=== PATIENT | female | born 1945 | race Caucasian/White ===

== ENCOUNTER 2025-09-19 13:00 | Inpatient (IN) | payer MEDICARE, SELFPAY ==
[2025-09-19 14:00] VITALS: BP 140/71; PULSE 71; RESP 16; TEMP 36.2; O2SAT 94
--- NOTE | 2025-09-19 14:01 | HP.PCM_ITS ---
HPI - General General Date of Admission: 09/19/25 Date of Service: 09/19/25 Chief Complaint: Here for rehabilitation. HPI Narrative KWAME MICHAEL, is a 80 Female who presents with followin09/12/2025 Admit [facility] for stroke alert. Left sided weakness, falls, rule out stroke. Worsening left sided weakness, fall, weakness left upper extremity. Mild right facial droop, no head trauma, no syncope. NIHSS 6. CT head okay, CTA head/neck no LVO. NIHSS, MRI brain, Echo, PT/OT/TUNA PURSE SEINER, Neurology, aspirin, statin for rule out stroke. 09/12/2025 Aspirin 81mg daily, Rosuvastatin 20mg for stroke with left hemiparesis. History of vascular dementia, sees Dr. Rehana Huang. Ceftriaxone IV UTI, urine culture pending. 09/13/2025 Confused. PT/OT/CM/SW right MCA stroke. 09/14/2025 PT/OT/CM/SW for discharge planning. 09/15/2025 Doing well, left side weaker than usual. 09/16/2025 Pre-CERT for SNF. 09/17/2025 MRI brain right sided stroke. PT/OT recommended IPR. E. Coli UTI treated with antibiotics. 09/18/2025 Aspirin 81mg daily, Rosuvastatin 20mg for stroke. PT/OT SNF. 09/19/2025 Admit to TCU with debility, here for rehabilitation, strengthening, prior to discharge home with . [facility] Medical History (Updated 09/19/25 @ 14:[address] Kevyn Price MD) Hypothyroidism Hyperlipidemia Vascular dementia Urinary tract infection Left hemiparesis Acute right MCA stroke Debility Home Medications ?Medication ?Instructions ?Recorded ?Last Taken ?Type acetaminophen 325 mg capsule 650 mg PO Q6H PRN pain (1 -10) 09/19/25 Unknown History aspirin 81 mg capsule 81 mg PO DAILY blood thinner 09/19/25 Unknown History bisacodyl 10 mg rectal suppository 10 mg AL DAILY PRN constipation 09/19/25 Unknown History dorzolamide 22.3 mg-timolol 6.8 1 drp ophthalmic (eye) BID eye 09/19/25 Unknown History mg/mL eye drops pressure enoxaparin 40 mg/0.4 mL 40 mg subcut DAILY blood thi nner 09/19/25 Unknown History subcutaneous syringe latanoprost 0.005 % eye drops 1 drp ophthalmic (eye) Q HS eye 09/19/25 Unknown History pressure levothyroxine 75 mcg tablet 75 mcg PO DAILY thyroid Unknown History rosuvastatin 10 mg tablet 20 mg PO DAILY cholesterol 1 Unknown History Family History (Updated 09/19/25 @ 14:[address] Kevyn Price MD) Brother Diabetes Sister Hypertension Sister Ovarian cancer Brother Hypertension Brother Colon cancer Sister Breast cancer Brother Glaucoma Surgical History (Updated 09/19/25 @ 14:[address] Kevyn Price MD) History of tonsillectomy History of vaginal hysterectomy History of total thyroidectomy History of surgical procedure on eye proper using laser History of lumpectomy of left breast History of right knee surgery History of eye surgery Social History (Updated 09/19/25 @ 14:[address] Kevyn Price MD) household members: spouse Smoking Status: Never smoker alcohol intake: never substance use type: does not use ROS Constitutional Constitutional: Reports weakness; Denies chills, fever(s) or weight gain ENT HEENT: Denies headache(s), nasal congestion or nasal discharge Cardiovascular Cardiovascular: Denies chest pain or palpitations Respiratory/Chest Respiratory/Chest: Denies cough, excessive phlegm production or shortness of breath with exertion Gastrointestinal Gastrointestinal: Denies abdominal pain, nausea or vomiting Genitourinary Genitourinary: Denies dysuria Musculoskeletal Musculoskeletal: Denies joint pain or joint swelling Integumentary Integumentary: Denies rash or wounds Neurologic Neurologic: Denies focal weakness, numbness or tingling Psychiatric Psychiatric: Denies anxiety, auditory hallucinations, depression, homicidal ideation or suicidal ideation Physical Exam Const alert General Appearance: cooperative HEENT normocephalic Eyes PERRL and EOMs intact bilaterally Neck supple, no JVD and no carotid bruits Resp normal respiratory effort, normal air movement and clear to auscultation bilaterally Cardio regular rate and regular rhythm GI normal to inspection, nondistended, normoactive bowel sounds, non-tender and non-distended Extremity normal capillary refill General Extremity: Negative for edema Skin no rashes or lesions noted General Skin Exam: no breakdown Neuro moves all extremities Neuro Narrative: Left hemiparesis. Psych affect normal Appearance: appropriate Assessment & Plan Assessment/Plan (1) Debility: (2) Acute right MCA stroke: (3) Left hemiparesis: (4) Urinary tract infection: (5) Vascular dementia: (6) Hyperlipidemia: (7) Hypothyroidism: PLAN: Plan 80 year old female with below past medical history hospitalized for right MCA stroke, left hemiparesis, complicated by urinary tract infection, admitted to TCU with debility, here for rehabilitation, strengthening, prior to discharge home with . * Debility - PT/OT. * Pain - Tylenol 1000mg q6 prn pain (1-10). * Bowel - senna/colace 1 tablet bid, Dulcolax 10mg pr daily prn * Adult immunization - Administer pneumonia vaccine, covid vaccine, flu vaccine as appropriate. * DVT prophylaxis - Lovenox 40mg sc daily. * Stroke - Aspirin 81mg daily. * Hyperlipidemia - Atorvastatin 40mg qhs. * Glaucoma - Dorzolamide/Timolol 1gtt ou bid, Latanoprost 1gtt ou qhs. * Dry eye - Artificial tears 2 gtt ou q1h prn. * Hypothyroidism - Levothyroxine 88mcg daily.
[2025-09-19] MEDS: Dorzolamide HCL/Timolol 10 ml Bottle 1 DRP OPHTHALMIC (20:15)
[2025-09-19] MEDS: MELATONIN 3 MG TABLET PO (20:16)
[2025-09-19] MEDS: Senna/Docusate Sodium 1 Tablet PO (20:20)
[2025-09-19] MEDS: Latanoprost 0.005% 1 Bottle 1 DRP OPHTHALMIC (20:21)
[2025-09-20 06:40] LABS: Hematocrit 41.9 % (37-47); Hemoglobin 13.7 g/dL (12.0-15.0); Immature Granulocytes Count 0.060 X10^3/uL (0.0-0.0); Mean Corp Hgb Conc 32.7 g/dL (32-36); Mean Corpuscular Volume 91.1 fL (81-99); Mean Platelet Vol. 9.8 fl (6.2-12.0); NRBC Flagged by Analyzer 0 % (0-5); Platelet Count 310 K/mm3 (150-450); RBC Distribution Width CV 15.3 % (11.6-14.6); RBC Distribution Width SD 50.5 fl (35.1-43.9); Red Blood Count 4.60 M/mm3 (4.2-5.4); White Blood Count 7.8 K/mm3 (4.4-11.0)
[2025-09-20 07:50] LABS: Anion Gap 9 (5-15); BUN 26 mg/dL (4-19); BUN/Creat Ratio 34.6 RATIO (10-20); Calcium,Total 8.8 mg/dL (7.6-11.0); Carbon Dioxide 25.5 mmol/L (21.0-32.0); Chloride 104 mmol/L (98-108); Glucose 114 mg/dL (70-99); Potassium 3.7 mmol/L (3.3-5.1)
[2025-09-20 08:44] VITALS: BMI 28.2
[2025-09-20] MEDS: Dorzolamide HCL/Timolol 10 ml Bottle 1 DRP OPHTHALMIC ×2 (09:12→21:11)
[2025-09-20] MEDS: Senna/Docusate Sodium 1 Tablet PO (09:14)
[2025-09-20 09:19] VITALS: BP 126/72; PULSE 91; RESP 18; TEMP 36.3; O2SAT 95
[2025-09-20] MEDS: Tuberculin,Purif.prot.deriv. 50 TU/ML Vial 0.1 ML ID (11:32)
[2025-09-20] MEDS: MELATONIN 3 MG TABLET PO (21:12)
[2025-09-20] MEDS: Latanoprost 0.005% 1 Bottle 1 DRP OPHTHALMIC (21:14)
[2025-09-20 21:15] VITALS: RESP 16
[2025-09-21 05:21] VITALS: PULSE 92; RESP 16; O2SAT 97
[2025-09-21] MEDS: Dorzolamide HCL/Timolol 10 ml Bottle 1 DRP OPHTHALMIC ×2 (08:09→21:13)
[2025-09-21 08:16] VITALS: BP 148/76; PULSE 94; RESP 18; TEMP 36.6; O2SAT 94
[2025-09-21] MEDS: MELATONIN 3 MG TABLET PO (21:13)
[2025-09-21] MEDS: Latanoprost 0.005% 1 Bottle 1 DRP OPHTHALMIC (21:13)
--- NOTE | 2025-09-22 08:11 | PHA.CONS_ITS ---
Documented by User: Carmel Handy 09/22/25 08:26 TCU RX Drug Regimen Review Subjective/Objective Subjective/Objective Subjective: TCU Admission. 80 YOF presented to outside hospital as a stroke alert. Hospitalized for right MCA stroke, left hemiparesis, complicated by ur inary tract infection. Admitted to TCU with debility for strengthening and rehabilitation. Objective: Allergies Penicillins Adverse Reaction (Verified 09/19/25 14:32) Rash Current Medications Generic Name Dose Route Start Last Admin Trade Name Freq PRN Reason Stop Dose Admin Acetaminophen 1,000 mg 09/19/25 14:21 Acetaminophen 500 Mg Tablet PO Q6H PRN pain (1-10) Artificial Tears 2 drp 09/19/25 15:39 Carboxymethylcellulose Sodium 1 Drp Drops OPHTHALMIC Q1H PRN DRY EYES Aspirin 81 mg 09/20/25 08:00 09/21/25 08:07 Aspirin 81 Mg Tab.Chew PO 81 mg BREAKFAST ALON Administration Atorvastatin Calcium 40 mg 09/19/25 22:00 09/21/25 21:13 Atorvastatin Calcium 40 Mg Tablet PO 40 mg QHS ALON Administration Bisacodyl 10 mg 09/19/25 13:51 Bisacodyl 10 Mg Suppository RC DAILY PRN CONSTIPATION Calamine/Phenol 1 applic 09/19/25 22:00 09/21/25 21:20 Menthol/Lanolin/Calamine/Znox 113 Gm Tube TOPICAL 1 applic BID ALON Administration Protocol Dorzolamide/Timolol 1 drp 09/19/25 22:00 09/21/25 21:13 Dorzolamide Hcl/Timolol 10 Ml Bottle OPHTHALMIC 1 drp BID ALON Administration Enoxaparin Sodium 40 mg 09/20/25 10:00 09/21/25 08:10 Enoxaparin 40 Mg/0.4 Ml Syringe SC 40 mg DAILY ALON Administration Latanoprost 1 drp 09/19/25 22:00 09/21/25 21:13 Latanoprost 0.005% 1 Bottle OPHTHALMIC 1 drp QHS ALON Administration Levothyroxine Sodium 88 mcg 09/20/25 06:00 09/22/25 06:48 Levothyroxine 88 Mcg Tablet PO 88 mcg DAILY@0600 ALON Administration Melatonin 3 mg 09/19/25 22:00 09/21/25 21:13 Melatonin 3 Mg Tablet PO 3 mg QHS ALON Administration Nystatin 1 applic 09/19/25 22:00 09/22/25 06:50 Nystatin Powder 15gm Bottle TOPICAL 1 applic TID ALON Administration Protocol Senna/Docusate Sodium 1 tablet 09/19/25 22:00 09/21/25 21:11 Senna/Docusate Sodium 1 Tablet PO Not Given BID ALON Tuberculin PPD 0.1 ml 09/27/25 10:00 Tuberculin,Purif.Prot.Deriv. 50 Tu/Ml Vial ID 09/27/25 10:01 X1 ONE Problem List Hypothyroidism (Acute) Hyperlipidemia (Acute) Vascular dementia (Acute) Urinary tract infection (Acute) Left hemiparesis (Acute) Acute right MCA stroke (Acute) Debility (Acute) Vital Signs Temp Pulse Resp BP Pulse Ox O2 Del Method 97.8 F 94 18 148/76 H 94 Room Air 09/21/25 08:16 09/21/25 08:16 09/21/25 08:16 09/21/25 08:16 09/21/25 08:16 09/21/25 08:16 Oxygen Delivery Method Room Air Weight: 74.644 kg Body Mass Index (BMI) 28.2 Sodium 138 mmol/L (133-145) 09/20/25 06:17 Potassium 3.7 mmol/L (3.3-5.1) 09/20/25 06:17 Chloride 104 mmol/L (98-108) 09/20/25 06:17 Carbon Dioxide 25.5 mmol/L (21.0-32.0) 09/20/25 06:17 Anion Gap 9 (5-15) 09/20/25 06:17 BUN 26 mg/dL (4-19) H 09/20/25 06:17 Creatinine 0.76 mg/dL (0.70-1.20) 09/20/25 06:17 Est GFR (MDRD) Non-Af 79 (>60) 09/20/25 06:17 BUN/Creatinine Ratio 34.6 RATIO (10-20) H 09/20/25 06:17 Glucose 114 mg/dL (70-99) H 09/20/25 06:17 Assessment/Plan: 1. Pain: acetaminophen 1000mg PO Q6H PRN pain 1-10. Resident has not used any prn doses at this time. Please continue to monitor for increased pain and PRN usage. 2. Bowel: senna/docusate 1T PO BID and bisacodyl 10mg RC daily PRN constipation. Resident has not used any prn doses at this time. Resident has refused the last 3 doses of senna/docusate, please consider changing to PRN. Thanks. 3. DVT prophylaxis: enoxaparin 40mg SC daily. Please continue to monitor for S/S of bleeding, hemoglobin (last 13.7g/dL), platelets (last 310,000). Enoxaparin is a renally dosed medication. CrCl estimated =68 mL/min.?Dose appropriate for current renal function. Monitor serum creatine periodically. 4. Stroke: aspirin 81mg PO daily. Please continue to monitor for S/S of stroke/bleeding/bruising and hemoglobin. 5. Hyperlipidemia: atorvastatin 40mg PO QHS. Please consider ordering a lipid panel unless Resident had one during the hospital admission. Thanks. Please continue to monitor for muscle pain. 6. Glaucoma: dorzolamide/timolol 1gtt OU BID and latanoprost 0.005% 1gtt OU QHS. Please continue to monitor for S/S of glaucoma, blurry vision, vision changes. 7. Dry eyes: artificial tears 2gtt OU Q1H PRN dry eyes. Resident has not used any prn doses at this time. Please continue to monitor for dry eyes and PRN usage. 8. Hypothyroidism: levothyroxine 88mcg PO daily. Please consider ordering a TSH as there is no level in the chart. Thanks. Please continue to monitor for S/S of hypo/hyperthyroidism. 9. Insomnia: melatonin 3mg PO QHS. Please continue to monitor for improvement in insomnia and excessive daytime drowiness. Assessment/Plan for indications treated with psychotropic medications: Resident is not prescribed scheduled or prn psychotropic medications at the time of this drug regimen review. Medical chart and medication regimen reviewed. The following medication irregularities or issues were identified: 1. Senna/docusate 1T PO BID. Resident has refused the last 3 doses of senna/docusate, please consider changing to PRN. Thanks. 2. Atorvastatin 40mg PO QHS. Please consider ordering a lipid panel unless Resident had one during the hospital admission. Thanks. 3. Levothyroxine 88mcg PO daily. Please consider ordering a TSH as there is no level in the chart. Thanks. Documented by User: Dr. Kevyn Price MD 09/22/25 08:16 TCU RX Drug Regimen Review Date Date of Note: 09/22/25 Provider Comments Provider responsibility Provider Comments to Recommendations by Pharmacy Agree
[2025-09-22 08:34] VITALS: BP 123/69; PULSE 73; RESP 18; TEMP 36.3; O2SAT 95
[2025-09-22] MEDS: Dorzolamide HCL/Timolol 10 ml Bottle 1 DRP OPHTHALMIC ×2 (08:36→22:19)
[2025-09-22] MEDS: Senna/Docusate Sodium 1 Tablet PO (08:37)
--- NOTE | 2025-09-22 10:54 | MDS.RN ---
MDS Entry Tracker complete, pain assessment done.
--- NOTE | 2025-09-22 12:21 | CASEMGMT ---
Social Work SW met with pt and completed initial assessment. Pt's spouse present and assisted pt in answering questions when pt had difficulty. Contacts were verified. Pt/spouse confirmed code status as full code. SW educated pt to [facility] benefit and that NRD is 09/25 and continued stay is not guaranteed with each review. Pts goal is to return home with spouse at time of dc. Pt and spouse live in a one story in law suite that is attached to their sons home. Pt was independent with self care prior to CVA, but due to dementia, pt's spouse managed all IADLs and did not leave pt alone. Pt spouse is agreeable that pt can return home at time of dc. SW to follow for dc planning. KIRK Mcdowell
--- NOTE | 2025-09-22 13:36 | NURSING ---
Termite Control Technician Note; Activity Asset: Jamie Cabello is independent in her choice of daily activities w/reminders. She stated she forgets a lot after her stroke. Her Loy is her daily and brings in items she may want or needs. She welcomes the retread operator and therapy dog. Staff will remind her of weekly activities and respect her right to say no.
[2025-09-22] MEDS: COVID VAC 25-26 (12UP)(MOD)/PF 50 MCG/0.5 ML SYRINGE IM (16:20)
[2025-09-22 20:45] VITALS: PULSE 79; O2SAT 97
[2025-09-22] MEDS: MELATONIN 3 MG TABLET PO (22:20)
[2025-09-22] MEDS: Latanoprost 0.005% 1 Bottle 1 DRP OPHTHALMIC (22:20)
[2025-09-23 05:25] VITALS: PULSE 75
[2025-09-23] MEDS: Dorzolamide HCL/Timolol 10 ml Bottle 1 DRP OPHTHALMIC ×2 (09:14→22:24)
[2025-09-23] MEDS: Senna/Docusate Sodium 1 Tablet PO (09:16)
[2025-09-23 09:24] VITALS: BP 126/70; PULSE 87; RESP 16; TEMP 36.4; O2SAT 97
[2025-09-23 13:55] VITALS: BMI 28.5
--- NOTE | 2025-09-23 16:19 | CHAPLAIN ---
Type of Pastoral Visit _x__ Initial Visit ___ Follow-up Visit ___ On-call Visit ___ General Patient Visit ___ Spiritual Assessment ___ Family Conference ___ Bereavement ___ Rapid Response ___ Code Blue ___ Other (describe below) Pastoral Care Referral From _x__ Patient _x__ Family ___ Nurse ___ Physician ___ Day Camp Unit Leader ___ Paradi Operator ___ Other (describe below) Sacrament/Intervention _x__ Active listening ___ Anointing ___ Rastafari ___ Bereavement ___ Communion _x__ Billie exploration ___ _x__ Life review _x__ Prayer ___ Reconciliation ___ Sacrament of Sick _x__ Supportive presence ___ Wedding ___ Other (describe below) Pastoral Comments patient and spouse of 63 years is in the room; both express their billie in [place] and spouse has been a deacon of his jehovah's witness for 50 years; pt speaks of her journey since the stroke and of her desire to return to more activity and helping others; pt has two sons and a few grandchildren; pt is welcoming of visits and prayers for the future too; pt asks for prayer for her memory and against her fears of walking/falling
[2025-09-23] MEDS: MELATONIN 3 MG TABLET PO (22:25)
[2025-09-23] MEDS: Latanoprost 0.005% 1 Bottle 1 DRP OPHTHALMIC (22:25)
--- NOTE | 2025-09-24 09:10 | CASEMGMT ---
Social Work IDT met with patient, and son for care plan meeting. Discussed patient's progress in PT/OT/ST/SN/RDN. Pt has baseline Dementia, though has declined cognitively. Pt will need 24/7 care at [place]; cannot be left alone. reports he is home with pt. Pt currently needs physical assistance with LE and toileting ADLs. SW offered resources to assist with reducing caregiver burden, such as nonskilled [employer] and [place]. Both at an OOP cost. Family interested in those resources. SW provided and encouraged son to begin contacting [employer] agencies and can determine how often pt will need aides. stated he can assist with ADLs, but prefers assistance with showers. SW agreed. Son and involved as well as pt lives in their in-law suite. Educated to [facility] insurance with NRD 09/25 and continued stay is not guaranteed with each review. Provided pt/family with written communication of insurance process and copay coverage during stay. IDT and family goal is for pt to continue with therapy improvement to return closer to PLOF and lessen caregiver burden. SW will continue to follow for DC planning. Lamar Vargas BALANCE WHEEL SCREW HOLE DRILLER INSTALLATION MANAGER
[2025-09-24] MEDS: Dorzolamide HCL/Timolol 10 ml Bottle 1 DRP OPHTHALMIC ×2 (09:37→20:41)
[2025-09-24 09:44] VITALS: BP 123/83; PULSE 97; RESP 15; TEMP 36.8; O2SAT 93
--- NOTE | 2025-09-24 16:45 | NURSING ---
Addendum entered by Guerita Santoyo 09/25/25 13:42: Late entry- resident was send back to unit from ER around 1830 on 09/24/25. Original Note: ELECTRONIC PAGE MAKEUP SYSTEM OPERATOR got this Nurse d/t was having difficulty waking pt up, having left sided weakness and slurred speech. Upon entering room pt was awake and answering questions at baseline. Pt noted to have left arm weakness insurance agency sales manager equal leg strength equal and speech slightly garbled. BP 124/61 Spo2 94% RA Pulse 74 Blood sugar 109. Stroke Alert called and pt taken down to ER, pts in room and taken down to ER.
--- NOTE | 2025-09-24 17:22 | CASEMGMT ---
Social Work SW responded to stroke alert. Remained with , Loy. Educated to stroke-alert process and next steps. Provided emotional and verbal support. Escorted him to ED. contacted two sons and friend to notify. SW provided hand off to ED SW and ED SW escorted to pt's room in ED. Lamar Vargas LOCAL OWNER OPERATOR TRUCK DRIVER TISSUE SPECIALIST
[2025-09-24 20:20] VITALS: PULSE 79; O2SAT 96
[2025-09-24] MEDS: Latanoprost 0.005% 1 Bottle 1 DRP OPHTHALMIC (20:40)
[2025-09-24] MEDS: MELATONIN 3 MG TABLET PO (20:41)
--- NOTE | 2025-09-25 04:48 | NURSING ---
Written communication left for Dr. Price related to dry flaking skin on pt's BLE and the need for Aquafor order.
[2025-09-25 05:20] VITALS: PULSE 70; O2SAT 96
[2025-09-25 06:53] LABS: Cholesterol 136 mg/dL (<=200); Low Density Lipoprotein Calc. 76 mg/dL; Triglycerides 176 mg/dL; Very Low Density Lipoprotein 35 mg/dL (5-40); cholesterol:hdl ratio screen 4.56
[2025-09-25] MEDS: Dorzolamide HCL/Timolol 10 ml Bottle 1 DRP OPHTHALMIC ×2 (09:21→20:26)
[2025-09-25] MEDS: Mineral Oil/Petrolatum Cr 1.75oz Bottle 1 APPLIC TOPICAL ×2 (09:22→20:29)
--- NOTE | 2025-09-25 10:19 | CASEMGMT ---
Social Work SW completed BIMS (10/04) and PHQ-2 () for MDS assessment. Lamar Vargas DIRECTOR OF HEALTH EDUCATION SKI LIFT ATTENDANT
[2025-09-25 16:00] VITALS: BP 112/64; PULSE 78; RESP 16; TEMP 36.8; O2SAT 98
[2025-09-25] MEDS: Latanoprost 0.005% 1 Bottle 1 DRP OPHTHALMIC (20:25)
[2025-09-25] MEDS: MELATONIN 3 MG TABLET PO (20:26)
[2025-09-26 05:57] LABS: Hematocrit 42.5 % (37-47); Hemoglobin 13.7 g/dL (12.0-15.0); Immature Granulocytes Count 0.060 X10^3/uL (0.0-0.0); Mean Corp Hgb Conc 32.2 g/dL (32-36); Mean Corpuscular Volume 89.9 fL (81-99); Mean Platelet Vol. 10.0 fl (6.2-12.0); NRBC Flagged by Analyzer 0 % (0-5); Platelet Count 335 K/mm3 (150-450); RBC Distribution Width CV 15.4 % (11.6-14.6); RBC Distribution Width SD 51.2 fl (35.1-43.9); Red Blood Count 4.73 M/mm3 (4.2-5.4); White Blood Count 10.3 K/mm3 (4.4-11.0)
[2025-09-26 06:18] LABS: Anion Gap 10 (5-15); BUN 19 mg/dL (4-19); BUN/Creat Ratio 25.3 RATIO (10-20); Calcium,Total 8.6 mg/dL (7.6-11.0); Carbon Dioxide 23.8 mmol/L (21.0-32.0); Chloride 106 mmol/L (98-108); Estimated Creatinine Clearance 54.81 ml/min (50-250); Glucose 118 mg/dL (70-99); Potassium 3.9 mmol/L (3.3-5.1)
[2025-09-26] MEDS: Mineral Oil/Petrolatum Cr 1.75oz Bottle 1 APPLIC TOPICAL ×2 (08:19→22:21)
[2025-09-26] MEDS: Dorzolamide HCL/Timolol 10 ml Bottle 1 DRP OPHTHALMIC ×2 (08:20→22:18)
--- NOTE | 2025-09-26 10:02 | NURSING ---
Supervisor Composing Room Note; MDS for 09/26/2025 Complete
[2025-09-26 11:03] VITALS: PULSE 74
[2025-09-26 16:00] VITALS: BP 128/64; PULSE 83; RESP 16; TEMP 36.4; O2SAT 95
[2025-09-26] MEDS: Latanoprost 0.005% 1 Bottle 1 DRP OPHTHALMIC (22:18)
[2025-09-26] MEDS: MELATONIN 3 MG TABLET PO (22:20)
[2025-09-27 06:29] VITALS: PULSE 67; RESP 16; O2SAT 98
[2025-09-27] MEDS: Dorzolamide HCL/Timolol 10 ml Bottle 1 DRP OPHTHALMIC ×2 (09:03→22:59)
[2025-09-27] MEDS: Mineral Oil/Petrolatum Cr 1.75oz Bottle 1 APPLIC TOPICAL ×2 (09:03→22:59)
[2025-09-27 09:11] VITALS: BP 117/59; PULSE 75; RESP 16; TEMP 36.4; O2SAT 94
[2025-09-27] MEDS: Tuberculin,Purif.prot.deriv. 50 TU/ML Vial 0.1 ML ID (12:41)
[2025-09-27] MEDS: Latanoprost 0.005% 1 Bottle 1 DRP OPHTHALMIC (23:00)
[2025-09-27] MEDS: MELATONIN 3 MG TABLET PO (23:00)
[2025-09-28] MEDS: Dorzolamide HCL/Timolol 10 ml Bottle 1 DRP OPHTHALMIC ×2 (08:37→21:20)
[2025-09-28] MEDS: Mineral Oil/Petrolatum Cr 1.75oz Bottle 1 APPLIC TOPICAL ×2 (08:38→21:26)
[2025-09-28 08:45] VITALS: BP 113/58; PULSE 85; RESP 15; TEMP 36.4; O2SAT 99
[2025-09-28] MEDS: Latanoprost 0.005% 1 Bottle 1 DRP OPHTHALMIC (21:19)
[2025-09-28] MEDS: MELATONIN 3 MG TABLET PO (21:21)
[2025-09-29 09:48] VITALS: PULSE 80; RESP 18; TEMP 36.5; O2SAT 93
[2025-09-29] MEDS: Mineral Oil/Petrolatum Cr 1.75oz Bottle 1 APPLIC TOPICAL ×2 (10:34→22:36)
[2025-09-29] MEDS: Dorzolamide HCL/Timolol 10 ml Bottle 1 DRP OPHTHALMIC ×2 (10:34→22:36)
[2025-09-29] MEDS: MELATONIN 3 MG TABLET PO (22:35)
[2025-09-29] MEDS: Latanoprost 0.005% 1 Bottle 1 DRP OPHTHALMIC (22:36)
[2025-09-30] MEDS: Mineral Oil/Petrolatum Cr 1.75oz Bottle 1 APPLIC TOPICAL ×2 (08:53→21:51)
[2025-09-30] MEDS: Dorzolamide HCL/Timolol 10 ml Bottle 1 DRP OPHTHALMIC ×2 (08:54→21:53)
[2025-09-30 09:03] VITALS: BP 116/67; PULSE 70; RESP 18; TEMP 36.7; O2SAT 94
--- NOTE | 2025-09-30 12:47 | MDS.RN ---
Information for the MDS was obtained from review of the clinical record, interview of resident, staff, and direct observation of resident?s care.
[2025-09-30 13:00] VITALS: BMI 28.5
[2025-09-30] MEDS: Latanoprost 0.005% 1 Bottle 1 DRP OPHTHALMIC (21:51)
[2025-09-30] MEDS: MELATONIN 3 MG TABLET PO (21:51)
[2025-10-01] MEDS: Mineral Oil/Petrolatum Cr 1.75oz Bottle 1 APPLIC TOPICAL ×2 (08:30→20:39)
[2025-10-01] MEDS: Dorzolamide HCL/Timolol 10 ml Bottle 1 DRP OPHTHALMIC ×2 (08:31→20:40)
[2025-10-01 08:37] VITALS: BP 152/87; PULSE 63; RESP 16; TEMP 36.3; O2SAT 96
--- NOTE | 2025-10-01 14:43 | CASEMGMT ---
Social Work SW phoned to follow up on DC planning as insurance update is 10/02 and continued stay is not guaranteed. confirmed he is ready for DC and has hired [facility] 4hrs/day for 4x/wk to assist with pt at home. has participated in therapy sessions and confident for DC. SW offered skilled HHC and agreed. SW will provide list of skilled HHC agencies within geographical area, INN with insurance, that include quality and resource data via CarePort guide and leave in pt's room for review. denied DME needs. SW will continue to follow. Lamar Vargas MSW TECHNOLOGY STRATEGIST
--- NOTE | 2025-10-01 15:52 | CHAPLAIN ---
Type of Pastoral Visit ___ Initial Visit _x__ Follow-up Visit ___ On-call Visit ___ General Patient Visit ___ Spiritual Assessment ___ Family Conference ___ Bereavement ___ Rapid Response ___ Code Blue ___ Other (describe below) Pastoral Care Referral From _x__ Patient _x__ Family ___ Nurse ___ Physician ___ Food General Manager ___ Fund Controller ___ Other (describe below) Sacrament/Intervention _x__ Active listening ___ Anointing ___ Moravian ___ Bereavement ___ Communion _x__ Billie exploration ___ _x__ Life review _x__ Prayer ___ Reconciliation ___ Sacrament of Sick ___ Supportive presence ___ Wedding ___ Other (describe below) Pastoral Comments this patient and her are very welcoming and appreciate the spiritual care directed for them; both are expressive of their billie and gives stories of their lives; pt is making slow progress after a set back; both are focused on getting back to life at home and enjoying their mormonism family; presence and prayer welcomed
[2025-10-01] MEDS: Latanoprost 0.005% 1 Bottle 1 DRP OPHTHALMIC (20:41)
[2025-10-01] MEDS: MELATONIN 3 MG TABLET PO (20:41)
[2025-10-02] MEDS: Mineral Oil/Petrolatum Cr 1.75oz Bottle 1 APPLIC TOPICAL ×2 (09:05→20:21)
[2025-10-02] MEDS: Dorzolamide HCL/Timolol 10 ml Bottle 1 DRP OPHTHALMIC ×2 (09:06→20:20)
[2025-10-02 09:15] VITALS: BP 113/59; PULSE 84; RESP 16; TEMP 37.1; O2SAT 97
[2025-10-02] MEDS: Latanoprost 0.005% 1 Bottle 1 DRP OPHTHALMIC (20:20)
[2025-10-02] MEDS: MELATONIN 3 MG TABLET PO (20:21)
[2025-10-02 20:27] VITALS: PULSE 85; RESP 16
[2025-10-03 05:53] LABS: Hematocrit 39.6 % (37-47); Hemoglobin 12.5 g/dL (12.0-15.0); Immature Granulocytes Count 0.070 X10^3/uL (0.0-0.0); Mean Corp Hgb Conc 31.6 g/dL (32-36); Mean Corpuscular Volume 92.3 fL (81-99); Mean Platelet Vol. 9.7 fl (6.2-12.0); NRBC Flagged by Analyzer 0 % (0-5); Platelet Count 349 K/mm3 (150-450); RBC Distribution Width CV 15.7 % (11.6-14.6); RBC Distribution Width SD 53.1 fl (35.1-43.9); Red Blood Count 4.29 M/mm3 (4.2-5.4); White Blood Count 7.7 K/mm3 (4.4-11.0)
[2025-10-03 06:26] LABS: Anion Gap 9 (5-15); BUN 19 mg/dL (4-19); BUN/Creat Ratio 23.7 RATIO (10-20); Calcium,Total 8.9 mg/dL (7.6-11.0); Carbon Dioxide 24.9 mmol/L (21.0-32.0); Chloride 107 mmol/L (98-108); Estimated Creatinine Clearance 54.12 ml/min (50-250); Glucose 107 mg/dL (70-99); Potassium 4.6 mmol/L (3.3-5.1)
[2025-10-03 06:39] VITALS: PULSE 76; RESP 16; O2SAT 96
[2025-10-03 08:23] VITALS: BP 132/68; PULSE 80; RESP 18; TEMP 36.4; O2SAT 94
[2025-10-03] MEDS: Mineral Oil/Petrolatum Cr 1.75oz Bottle 1 APPLIC TOPICAL ×2 (08:25→21:52)
[2025-10-03] MEDS: Dorzolamide HCL/Timolol 10 ml Bottle 1 DRP OPHTHALMIC ×2 (08:26→21:48)
[2025-10-03] MEDS: MELATONIN 3 MG TABLET PO (21:50)
[2025-10-03] MEDS: Latanoprost 0.005% 1 Bottle 1 DRP OPHTHALMIC (21:51)
[2025-10-04 08:42] VITALS: BP 118/61; PULSE 76; RESP 18; TEMP 35.9; O2SAT 94
[2025-10-04] MEDS: Mineral Oil/Petrolatum Cr 1.75oz Bottle 1 APPLIC TOPICAL ×2 (08:44→22:21)
[2025-10-04] MEDS: Dorzolamide HCL/Timolol 10 ml Bottle 1 DRP OPHTHALMIC ×2 (08:45→22:21)
[2025-10-04 22:00] VITALS: PULSE 81; RESP 16; O2SAT 96
[2025-10-04] MEDS: MELATONIN 3 MG TABLET PO (22:22)
[2025-10-04] MEDS: Latanoprost 0.005% 1 Bottle 1 DRP OPHTHALMIC (22:26)
[2025-10-05 06:46] VITALS: PULSE 65; RESP 16; O2SAT 95
[2025-10-05 09:07] VITALS: BP 99/63; PULSE 80; RESP 18; O2SAT 93
[2025-10-05] MEDS: Mineral Oil/Petrolatum Cr 1.75oz Bottle 1 APPLIC TOPICAL ×2 (09:11→21:25)
[2025-10-05] MEDS: Dorzolamide HCL/Timolol 10 ml Bottle 1 DRP OPHTHALMIC ×2 (09:11→21:20)
[2025-10-05] MEDS: MELATONIN 3 MG TABLET PO (21:21)
[2025-10-05] MEDS: Latanoprost 0.005% 1 Bottle 1 DRP OPHTHALMIC (21:23)
[2025-10-06] MEDS: Dorzolamide HCL/Timolol 10 ml Bottle 1 DRP OPHTHALMIC ×2 (09:44→20:48)
[2025-10-06] MEDS: Mineral Oil/Petrolatum Cr 1.75oz Bottle 1 APPLIC TOPICAL ×2 (09:48→20:48)
[2025-10-06 10:00] VITALS: BP 116/69; PULSE 81; RESP 16; TEMP 36.5; O2SAT 95
[2025-10-06 20:30] VITALS: PULSE 72; RESP 16; O2SAT 97
[2025-10-06] MEDS: MELATONIN 3 MG TABLET PO (20:47)
[2025-10-06] MEDS: Latanoprost 0.005% 1 Bottle 1 DRP OPHTHALMIC (20:47)
[2025-10-07 06:32] VITALS: PULSE 66; RESP 16; O2SAT 96
[2025-10-07] MEDS: Mineral Oil/Petrolatum Cr 1.75oz Bottle 1 APPLIC TOPICAL ×2 (09:26→21:19)
[2025-10-07] MEDS: Dorzolamide HCL/Timolol 10 ml Bottle 1 DRP OPHTHALMIC ×2 (09:28→21:18)
[2025-10-07 09:31] VITALS: BP 128/65; PULSE 75; RESP 16; TEMP 36.2; O2SAT 94
[2025-10-07 11:22] VITALS: BMI 28.0
[2025-10-07] MEDS: Latanoprost 0.005% 1 Bottle 1 DRP OPHTHALMIC (21:18)
[2025-10-07] MEDS: MELATONIN 3 MG TABLET PO (21:18)
[2025-10-08] MEDS: Dorzolamide HCL/Timolol 10 ml Bottle 1 DRP OPHTHALMIC ×2 (09:28→21:44)
[2025-10-08] MEDS: Mineral Oil/Petrolatum Cr 1.75oz Bottle 1 APPLIC TOPICAL ×2 (09:32→21:43)
[2025-10-08 10:00] VITALS: BP 127/54; PULSE 84; RESP 12; TEMP 36.9; O2SAT 95
--- NOTE | 2025-10-08 10:15 | CASEMGMT ---
Social Work SW left VM with pt's to discuss DC planning. Insurance update is still pending. Lamar Vargas BUSINESS SERVICES ASSOCIATE END USER SUPPORT SPECIALIST
[2025-10-08] MEDS: Senna/Docusate Sodium 1 Tablet PO (16:20)
[2025-10-08] MEDS: MELATONIN 3 MG TABLET PO (21:44)
[2025-10-08] MEDS: Latanoprost 0.005% 1 Bottle 1 DRP OPHTHALMIC (21:44)
--- NOTE | 2025-10-09 09:25 | CASEMGMT ---
Addendum entered by Lamar Vargas 10/13/25 12:24: Advantage denied. [facility] can accept. SW updated . Original Note: Social Work SW phoned to inform of insurance approved with [employer] 10/13, anticipating DC 10/16. SW offered if wanted to set DC date prior given Thanksgiving and needing to schedule [facility]. declined and agreeable to DC 10/16. SW offered skilled HHC. agreed. SW offered list of skilled HHC agencies within geographical area, INN with insurance, that include quality and resource data via CarePort guide. declined list as he is not aware of any differences. SW educated that [facility] has a HHC agency. agreed to referral. SW phoned referral to [facility] but pt is out of service area. SW return call to and updated on [facility]. requested this worker select an agency in [place]. SW educated to [facility] and [facility]. agreed. Referrals sent via CarePort. Plan: DC home with 10/16, HHC PT/OT Lamar Vargas DIRECTOR APPOINTMENT METAL REED TUNER
[2025-10-09] MEDS: Mineral Oil/Petrolatum Cr 1.75oz Bottle 1 APPLIC TOPICAL ×2 (10:28→20:09)
[2025-10-09] MEDS: Dorzolamide HCL/Timolol 10 ml Bottle 1 DRP OPHTHALMIC ×2 (10:29→20:10)
[2025-10-09 10:34] VITALS: BP 109/61; PULSE 75; RESP 18; TEMP 36.3; O2SAT 92
--- NOTE | 2025-10-09 11:45 | NURSING ---
Concern from staff that right hearing aid missing. In room to ask and resident about it, checked bed and found under green pad on bed. Placed on credit risk officer to charge. Left hearing aid in place in left ear.
--- NOTE | 2025-10-09 19:43 | DS.PCM_ITS ---
Providers Date of Admission: 09/19/25 Primary Care Physician: JANES ROGEL Reason For Visit: LEFT SIDED WEAKNESS Diagnosis Discharge Diagnosis (1) Debility: Status: Acute Code(s): R53.81 - Other malaise (2) Acute right MCA stroke: Status: Acute Code(s): I63.511 - Cerebral infarction due to unspecified occlusion or stenosis of right middle cerebral artery (3) Left hemiparesis: Status: Acute Code(s): G81.94 - Hemiplegia, unspecified affecting left nondominant side (4) Urinary tract infection: Status: Acute Code(s): N39.0 - Urinary tract infection, site not specified (5) Vascular dementia: Status: Acute Code(s): F01.50 - Vascular dementia, unspecified severity, without behavioral disturbance, psychotic disturbance, mood disturbance, and anxiety (6) Hyperlipidemia: Status: Acute Code(s): E78.5 - Hyperlipidemia, unspecified (7) Hypothyroidism: Status: Acute Code(s): E03.9 - Hypothyroidism, unspecified Plan 80 year old female with below past medical history hospitalized for right MCA stroke, left hemiparesis, complicated by urinary tract infection, admitted to TCU with debility, here for rehabilitation, strengthening, prior to discharge home with . * Debility - PT/OT. * Pain - Tylenol 1000mg q6 prn pain (1-10). * Bowel - senna/colace 1 tablet bid, Dulcolax 10mg pr daily prn * Adult immunization - Administer pneumonia vaccine, covid vaccine, flu vaccine as appropriate. * DVT prophylaxis - Lovenox 40mg sc daily. * Stroke - Aspirin 81mg daily. * Hyperlipidemia - Atorvastatin 40mg qhs. * Glaucoma - Dorzolamide/Timolol 1gtt ou bid, Latanoprost 1gtt ou qhs. * Dry eye - Artificial tears 2 gtt ou q1h prn. * Hypothyroidism - Levothyroxine 88mcg daily. Medications at Discharge Home Medications aspirin 81 mg capsule 81 mg PO DAILY blood thinner 09/19/25 dorzolamide 22.3 mg-timolol 6.8 mg/mL eye drops 1 drp ophthalmic (eye) BID eye pressure 09/19/25 latanoprost 0.005 % eye drops 1 drp ophthalmic (eye) QHS eye pressure 09/19/25 carboxymethylcellulose sodium 0.5 % eye drops 2 drp ophthalmic (eye) Q1H PRN DRY EYES #0 mL 10/09/25 levothyroxine 88 mcg tablet 88 mcg PO DAILY@0600 30 days #30 tabs 10/09/25 melatonin 3 mg tablet 3 mg PO QHS #0 tabs 10/09/25 rosuvastatin 10 mg tablet 20 mg (2 x 10 mg) PO DAILY cholesterol 30 days #60 tabs 10/09/25 Hospital Course Operations None Procedures None Summary of Care Provided Minutes Spent on Discharge: 35 Hospital Course: 80 year old female with below past medical history hospitalized for right MCA stroke, left hemiparesis, complicated by urinary tract infection, admitted to TCU with debility, here for rehabilitation, strengthening, prior to discharge home with . Discharge home with 10/16/2025, [facility] PT/OT. Physical Exam Const alert General Appearance: cooperative HEENT normocephalic Eyes PERRL and EOMs intact bilaterally Neck supple, no JVD and no carotid bruits Resp normal respiratory effort, normal air movement and clear to auscultation bilaterally Cardio regular rate and regular rhythm GI normal to inspection, nondistended, normoactive bowel sounds, non-tender and non-distended Extremity normal capillary refill General Extremity: Negative for edema Skin no rashes or lesions noted General Skin Exam: no breakdown Neuro moves all extremities Neuro Narrative: Left hemiparesis. Psych affect normal Appearance: appropriate Weight / BMI Weight Weight: 74.435 kg Body Mass Index (BMI) 28.0 ABG / Lab / Microbiology Data 10/03/25 05:17 10/03/25 05:17 D/C Instructions Discharge Activity: Return to Normal Activity, May Shower and Use Walker Weight Bearing Status: Weight bearing as tolerated Call your doctor if you observe: Fever of 101 or Higher, Inability to urinate, Inability to have a bowel movement, Shortness of breath, Dizziness, Fainting spells, Swelling in the ankles, Chest pain and Uncontrolled pain DC O2, CPAP, BIPAP Needs Home O2 Discharge instructions: No Additional Instructions: Discharge home with 10/16/2025, [facility] PT/OT. Please Follow Up With: Toni Campos When: 4 weeks. Meaningful Use Info Meaningful Use Meaningful Use Diagnoses (Choose all that apply): Ischemic CVA CVA Therapy Assessed for PT,OT and/or ST?: Yes Ischemic Stroke Antithrombotic order at d/c?: Yes Dx of Atrial fib/flutter?: No Statins at discharge?: Yes Primary Dx Acute Ischemic CVA?: Yes IV thrombolytic ordered during stay?: No Reason IV thrombolytic not ordered: Treatment not Indicated Discharge Plan Admission Admit Date/Time: 09/19/25 13:00 Primary Reason for Your Visit: Debility. Attending Provider: Kevyn Price Chi Primary Care Provider: JANES ROGEL Instructions Additional Instructions / Restrictions: Discharge home with 10/16/2025, [facility] PT/OT. Discharge Orders/Prescriptions Prescriptions: New carboxymethylcellulose sodium 0.5 % Drops 2 drp ophthalmic (eye) Q1H PRN (Reason: DRY EYES) Qty: 0 0RF melatonin 3 mg Tablet 3 mg PO QHS Qty: 0 0RF levothyroxine 88 mcg Tablet 88 mcg PO DAILY@0600 30 Days Qty: 30 0RF Continued dorzolamide-timolol 22.3-6.8 mg/mL drops 1 drp ophthalmic (eye) BID latanoprost 0.005 % drops 1 drp ophthalmic (eye) QHS aspirin 81 mg capsule 81 mg PO DAILY rosuvastatin 10 mg tablet 20 mg PO DAILY 30 Days Qty: 60 0RF Discontinued levothyroxine 75 mcg tablet 75 mcg PO DAILY enoxaparin 40 mg/0.4 mL syringe 40 mg subcut DAILY bisacodyl 10 mg suppository 10 mg PA DAILY PRN (Reason: constipation) acetaminophen 325 mg capsule 650 mg PO Q6H PRN (Reason: pain (1-10)) Referrals / Follow Up: JANES ROGEL [Other] - 10/14/25 10:00 am Referral Note: appt with Toni Rodriguez MD [Non-Staff, Neurology] - 10/13/25 1:00 pm Referral Note: please arrive 15 minutes early and bring ID and Insurance cards along Disposition Disposition (needs filled in before D/C Order can be placed): Home Health Service
[2025-10-09] MEDS: MELATONIN 3 MG TABLET PO (20:10)
[2025-10-09] MEDS: Latanoprost 0.005% 1 Bottle 1 DRP OPHTHALMIC (20:11)
[2025-10-09 21:00] VITALS: RESP 16
[2025-10-10 06:08] LABS: Hematocrit 38.7 % (37-47); Hemoglobin 12.4 g/dL (12.0-15.0); Immature Granulocytes Count 0.070 X10^3/uL (0.0-0.0); Mean Corp Hgb Conc 32.0 g/dL (32-36); Mean Corpuscular Volume 92.1 fL (81-99); Mean Platelet Vol. 10.0 fl (6.2-12.0); NRBC Flagged by Analyzer 0 % (0-5); Platelet Count 311 K/mm3 (150-450); RBC Distribution Width CV 15.8 % (11.6-14.6); RBC Distribution Width SD 53.0 fl (35.1-43.9); Red Blood Count 4.20 M/mm3 (4.2-5.4); White Blood Count 7.9 K/mm3 (4.4-11.0)
[2025-10-10 06:37] LABS: Anion Gap 9 (5-15); BUN 21 mg/dL (4-19); BUN/Creat Ratio 28.1 RATIO (10-20); Calcium,Total 8.4 mg/dL (7.6-11.0); Carbon Dioxide 26.9 mmol/L (21.0-32.0); Chloride 108 mmol/L (98-108); Estimated Creatinine Clearance 54.50 ml/min (50-250); Glucose 105 mg/dL (70-99); Potassium 3.7 mmol/L (3.3-5.1)
[2025-10-10] MEDS: Mineral Oil/Petrolatum Cr 1.75oz Bottle 1 APPLIC TOPICAL ×2 (09:11→21:05)
[2025-10-10] MEDS: Dorzolamide HCL/Timolol 10 ml Bottle 1 DRP OPHTHALMIC ×2 (09:13→21:04)
[2025-10-10 09:17] VITALS: BP 118/64; PULSE 67; RESP 16; TEMP 36.3; O2SAT 96
[2025-10-10] MEDS: Latanoprost 0.005% 1 Bottle 1 DRP OPHTHALMIC (21:05)
[2025-10-10] MEDS: MELATONIN 3 MG TABLET PO (21:06)
[2025-10-10 22:05] VITALS: PULSE 78; RESP 16
[2025-10-11] MEDS: Mineral Oil/Petrolatum Cr 1.75oz Bottle 1 APPLIC TOPICAL ×2 (08:13→20:25)
[2025-10-11] MEDS: Dorzolamide HCL/Timolol 10 ml Bottle 1 DRP OPHTHALMIC ×2 (08:14→20:24)
[2025-10-11 08:20] VITALS: BP 133/97; PULSE 73; RESP 18; TEMP 36.2; O2SAT 96
[2025-10-11 16:50] VITALS: BP 112/61; PULSE 67; TEMP 36.2; O2SAT 95
[2025-10-11] MEDS: MELATONIN 3 MG TABLET PO (20:24)
[2025-10-11] MEDS: Latanoprost 0.005% 1 Bottle 1 DRP OPHTHALMIC (20:24)
[2025-10-12] MEDS: Mineral Oil/Petrolatum Cr 1.75oz Bottle 1 APPLIC TOPICAL ×2 (08:11→20:35)
[2025-10-12] MEDS: Dorzolamide HCL/Timolol 10 ml Bottle 1 DRP OPHTHALMIC ×2 (08:12→20:33)
[2025-10-12 08:18] VITALS: BP 125/67; PULSE 67; RESP 18; TEMP 36.6; O2SAT 97
[2025-10-12] MEDS: MELATONIN 3 MG TABLET PO (20:33)
[2025-10-12] MEDS: Latanoprost 0.005% 1 Bottle 1 DRP OPHTHALMIC (20:33)
[2025-10-12 20:37] VITALS: PULSE 80; RESP 16; O2SAT 95
[2025-10-13 06:19] VITALS: PULSE 66; RESP 16; O2SAT 94
[2025-10-13 08:11] VITALS: BP 147/75; PULSE 72; RESP 18; TEMP 36.5; O2SAT 92
[2025-10-13] MEDS: Mineral Oil/Petrolatum Cr 1.75oz Bottle 1 APPLIC TOPICAL ×2 (08:13→20:27)
[2025-10-13] MEDS: Dorzolamide HCL/Timolol 10 ml Bottle 1 DRP OPHTHALMIC ×2 (08:14→20:28)
[2025-10-13 15:11] VITALS: BP 121/67; PULSE 70; RESP 17; TEMP 36.8; O2SAT 95
[2025-10-13] MEDS: MELATONIN 3 MG TABLET PO (20:28)
[2025-10-13] MEDS: Latanoprost 0.005% 1 Bottle 1 DRP OPHTHALMIC (20:29)
[2025-10-13] MEDS: Senna/Docusate Sodium 1 Tablet PO (20:34)
[2025-10-14 09:14] VITALS: BP 122/67; PULSE 87; RESP 18; TEMP 36.6; O2SAT 94
[2025-10-14] MEDS: Senna/Docusate Sodium 1 Tablet PO (09:16)
[2025-10-14] MEDS: Dorzolamide HCL/Timolol 10 ml Bottle 1 DRP OPHTHALMIC ×2 (09:16→21:48)
[2025-10-14] MEDS: Mineral Oil/Petrolatum Cr 1.75oz Bottle 1 APPLIC TOPICAL ×2 (09:17→21:46)
[2025-10-14 13:00] VITALS: BMI 28.0
[2025-10-14] MEDS: MELATONIN 3 MG TABLET PO (21:48)
[2025-10-14] MEDS: Latanoprost 0.005% 1 Bottle 1 DRP OPHTHALMIC (21:49)
[2025-10-15] MEDS: Dorzolamide HCL/Timolol 10 ml Bottle 1 DRP OPHTHALMIC ×2 (09:27→20:45)
[2025-10-15 09:32] VITALS: BP 102/68; PULSE 85; RESP 18; TEMP 36.8; O2SAT 95
--- NOTE | 2025-10-15 11:49 | CASEMGMT ---
Social Work SW completed BIMS (08/04) and PHQ-2 () for MDS assessment. Nahomi Vargas PAVING AND SURFACING LABOURER COLOR REPAIRER
--- NOTE | 2025-10-15 12:43 | MDS.RN ---
Pain assessment for MDS complete.
[2025-10-15 16:00] VITALS: BP 123/63; PULSE 71; RESP 18; TEMP 36.6
[2025-10-15] MEDS: MELATONIN 3 MG TABLET PO (20:46)
[2025-10-15] MEDS: Latanoprost 0.005% 1 Bottle 1 DRP OPHTHALMIC (20:46)
[2025-10-15] MEDS: Mineral Oil/Petrolatum Cr 1.75oz Bottle 1 APPLIC TOPICAL (20:48)
[2025-10-16 06:17] VITALS: PULSE 65; RESP 16; O2SAT 95
[2025-10-16] MEDS: Dorzolamide HCL/Timolol 10 ml Bottle 1 DRP OPHTHALMIC (08:59)
[2025-10-16 09:06] VITALS: BP 117/65; PULSE 76; RESP 18; TEMP 36.8; O2SAT 92
[2025-10-16 11:00] VITALS: BP 117/65; PULSE 76; RESP 18; TEMP 36.8; O2SAT 92
== END 2025-10-16 10:35 | disposition home health service (06) | DRG 57 ==
PROVIDERS: Admitting Provider Family Medicine Geriatric Medicine; Referring Provider Family Medicine Geriatric Medicine; Visit Provider Family Medicine Geriatric Medicine
DX: I69.354 Hemiplegia and hemiparesis following cerebral infarction affecting left non-dominant side (principal); I69.392 Facial weakness following cerebral infarction; F01.50 Vascular dementia, unspecified severity, without behavioral disturbance, psychotic disturbance, mood disturbance, and anxiety; E89.0 Postprocedural hypothyroidism; E78.5 Hyperlipidemia, unspecified; Z79.890 Hormone replacement therapy; Z79.899 Other long term (current) drug therapy; H40.9 Unspecified glaucoma; Z79.01 Long term (current) use of anticoagulants; G47.00 Insomnia, unspecified; Z79.82 Long term (current) use of aspirin; Z23 Encounter for immunization
CPT/HCPCS: 36415; 80048; 80061; 82962; 84443; 85025; 90480; 91322; 92507; 92523; 97110; 97116; 97129; 97130; 97162; 97165; 97530; 97535; 97802

== ENCOUNTER 2025-09-24 16:54 | Emergency (ER) | payer MEDICARE, SELFPAY ==
--- NOTE | 2025-09-24 16:58 | CT_ITS ---
PROCEDURE: CT/STROKE Brain/Head without Cont
--- NOTE | 2025-09-24 16:59 | ED.VIS.STROK ---
HPI History of Present Illness Chief Complaint: Stroke Alert Detail of Chief Complaint: Dysarthria and left-sided weakness Informant: other (TCU nurse) Limited: dementia Onset/Context/Timing Onset: Today (Last known well 1430 when patient took a nap) Context: Sudden Onset Timing: Continuous Quality and Location: Positive for Left Facial Droop, Left Arm Weakness, Left Leg Weakness and Slurred Speech Onset: Last known well 1430 Current Severity: Mild Maximum Severity: Moderate Worsened by: Recent stroke September 12, 2025 Relieved by: Not applicable Associated Symptoms Associated Symptoms: Negative for Headache, Nausea or Vomiting Narrative Narrative: Patient is an 80-year-old female. She has history of vascular dementia, hyperlipidemia, debility, hypothyroidism and acute right MCA stroke September 12, 2025. She is not a good informant. Her nurse accompanied her from the TCU. Patient was examined in the triage area. Based on history and her physical exam stroke order set was initiated. History is limited due to her vascular dementia. Prior similar symptoms: Yes Recent Illness/Hospitalization: Yes PFSH PFSH Medical History Hypothyroidism Hyperlipidemia Vascular dementia Urinary tract infection Left hemiparesis Acute right MCA stroke Debility Home Medications ?Medication ?Instructions ?Recorded ?Last Taken ?Type acetaminophen 325 mg capsule 650 mg PO Q6H PRN pain (1-10) 09/19/25 Unknown History aspirin 81 mg capsule 81 mg PO DAILY blood thinner 09/19/25 Unknown History bisacodyl 10 mg rectal suppository 10 mg NH DAILY PRN constipation 09/19/25 Unknown History dorzolamide 22.3 mg-timolol 6.8 1 drp ophthalmic (eye) BID eye 09/19/25 Unknown History mg/mL eye drops pressure enoxaparin 40 mg/0.4 mL 40 mg subcut DAILY blood thinner 09/19/25 Unknown History subcutaneous syringe latanoprost 0.005 % eye drops 1 drp ophthalmic (eye) QHS eye 09/19/25 Unknown History pressure levothyroxine 75 mcg tablet 75 mcg PO DAILY thyroid 09/19/25 Unknown History rosuvastatin 10 mg tablet 20 mg PO DAILY cholesterol 09/19/25 Unknown History Allergy/AdvReac Type Severity Reaction Status Date / Time Penicillins AdvReac Rash Verified 09/19/25 14:32 Family History Brother Diabetes Sister Hypertension Sister Ovarian cancer Brother Hypertension Brother Colon cancer Sister Breast cancer Brother Glaucoma Surgical History History of tonsillectomy History of vaginal hysterectomy History of total thyroidectomy History of surgical procedure on eye proper using laser History of lumpectomy of left breast History of right knee surgery History of eye surgery Social History household members: spouse Smoking Status: Never smoker alcohol intake: never substance use type: does not use EXAM Physical Exam Const Vital Signs: 09/24/25 17:15 09/24/25 17:28 09/24/25 17:30 Temperature 98.3 F Temperature Source Oral Pulse Rate 83 78 Respiratory Rate 15 16 Blood Pressure 138/72 H 124/58 H Blood Pressure Mean 94 80 Pulse Ox 95 95 Oxygen Delivery Method Room Air Room Air Room Air Positive well nourished and well developed Constitutional Narrative: Pleasant elderly woman who is in no distress. She has at times difficulty answering questions General Appearance ED: well developed HEENT Reports moist mucous membranes atraumatic Eyes PERRL and EOMs intact bilaterally Eyes Narrative: There is no nystagmus. There is no visual field cut General Eye ED: Negative for pale conjunctiva or scleral icterus Neck no lymphadenopathy, supple and no JVD Resp normal respiratory effort and clear to auscultation bilaterally Cardio no murmurs Rate: regular rate Rhythm: regular rhythm Heart Sounds: S1 normal and S2 normal GI normal to inspection, nondistended, normoactive bowel sounds, soft to palpation, non-tender, non-distended and no masses Auscultation: normoactive bowel sounds Extremity normal to inspection General Extremety ED: Negative for deformity or edema General Extremity: Negative for deformity or edema Neuro oriented x3 and CN's II-XII intact bilaterally [place] Coma Scale: document GCS findings (This is patient's baseline) Spontaneous Obeys Commands Confused 14 Speech: Negative for speech normal Motor Exam: Negative for strength 5/5 throughout Psych mental status grossly normal Skin no wounds General Skin Exam: Negative for jaundice Lesions: no lesions Rashes: no rashes MDM MDM MDM Narrative Medical decision making narrative: Stroke alert was initiated. Patient not a candidate for TNK since she had a stroke September 12. Will perform CT as well as CTA of the head and neck to rule out intracranial bleed i.e. hemorrhagic conversion and LVO. The CT of the head reveals old strokes. CTA was read by same radiologist as negative. Her vessels are wide open according to him. Lab Data Attestation: I reviewed the patient's lab results. Lab results narrative: CBC is unremarkable. Coags are normal. Labs: Laboratory Results - last 24 hr 09/24/25 17:07 WBC 8.7 RBC 4.74 Hgb 14.1 Hct 43.1 MCV 90.9 MCH 29.7 MCHC 32.7 RDW Std Deviation 51.4 H RDW Coeff of Gauri 15.4 H Plt Count 326 MPV 9.8 Immature Gran % (Auto) 1.000 H Neut % (Auto) 65.0 Lymph % (Auto) 20.0 [place] % (Auto) 12.9 H Eos % (Auto) 0.5 Baso % (Auto) 0.6 Absolute Neuts (auto) 5.6 Absolute Lymphs (auto) 1.73 Nucleated RBC % 0 PT 13.2 INR 1.0 APTT 33.0 EKG Initial EKG: Attestation: I personally reviewed and interpreted this EKG as follows: Interpretation: Sinus Rhythm (Rate is 80. There are premature atrial complexes noted. There is evidence of LVH or normal variant. NH interval is 204 ms. QS duration 70 ms. QT duration of 132 ms. [place] is normal. Computer is reading inferior infarct of unknown etiology. In my opinion there is a slight upward deflection bef) Management Discussion w/another healthcare provider: Doctor Podiatric Medicine ([facility] neurologist. Plan is if CTA is negative she may return to the TCU. She will not need a repeat MRI.) and Radiologist (Radiologist contacted me regarding the CT minus as well as a CTA of the head and neck.) Discharge Plan Triage Chief Complaint: Stroke Alert ED Provider: Keyur Matthew Dx/Rx/DC Orders Clinical Impression: Dysarthria due to acute cerebrovascular accident (CVA), Acute left hemiparesis, Vascular dementia, Hyperlipidemia, Hypothyroidism Instructions: ED TIA: Transient Ischemic Attack Prescriptions: No Action dorzolamide-timolol 22.3-6.8 mg/mL drops 1 drp ophthalmic (eye) BID latanoprost 0.005 % drops 1 drp ophthalmic (eye) QHS levothyroxine 75 mcg tablet 75 mcg PO DAILY rosuvastatin 10 mg tablet 20 mg PO DAILY enoxaparin 40 mg/0.4 mL syringe 40 mg subcut DAILY bisacodyl 10 mg suppository 10 mg NH DAILY PRN (Reason: constipation) aspirin 81 mg capsule 81 mg PO DAILY acetaminophen 325 mg capsule 650 mg PO Q6H PRN (Reason: pain (1-10)) Primary Care Provider: JANES ROGEL Referrals: JANES ROGEL [Other] Print Language: Estonian Disposition Disposition: Inpatient Rehab Unit/Facility Discharge Location: [facility] Transitional Care Unit NIHSS NIHSS 1a. Level of Consciousness: 1 - Not alert; Arousable by minor stimuli to obey, answer & respond 1b. LOC Questions: 1 - Answers ONE question correctly 1c. LOC Commands: 0 - Performs BOTH tasks correctly 2. Best Gaze: 0 - Normal 4. Facial Palsy: 1 - Minor paralysis (flattened nasolabial fold, asymmetry on smiling) 5a. Left Arm: 1 - Drift; arm drifts downward but doesn?t hit the bed 5b. Right Arm: 0 - No drift; arm holds 90 (or 45) degrees for full 10 seconds 6a. Left Le - Drift; leg falls by the end of 5-seconds, but does not hit bed 6b. Right Le - No drift; leg holds 30-degree position for full 5 seconds 8. Sensory: 0 - Normal; no sensory loss 9. Best Language: 0 - No aphasia; normal 10. Dysarthria: 1 = [id number]-[id number] dysarthria; 11. Extinction and Inattention: 1 - Visual, tactile, auditory, spatial, or personal inattention; Total: 7 Stroke Questions Stroke Team Activated: Yes Reviewed Inclusion/Exclusion criteria: Yes IV Thrombolytic Administered: No No contraindications from thrombolytic administration: No
--- NOTE | 2025-09-24 17:10 | CT_ITS ---
PROCEDURE: CT/STROKE CTA Head AND Neck W/Con
[2025-09-24 17:15] VITALS: BP 138/72; PULSE 83; RESP 15; TEMP 36.8; O2SAT 95; BMI 29.5
[2025-09-24 17:16] LABS: Hematocrit 43.1 % (37-47); Hemoglobin 14.1 g/dL (12.0-15.0); Immature Granulocytes Count 0.090 X10^3/uL (0.0-0.0); Mean Corp Hgb Conc 32.7 g/dL (32-36); Mean Corpuscular Volume 90.9 fL (81-99); Mean Platelet Vol. 9.8 fl (6.2-12.0); NRBC Flagged by Analyzer 0 % (0-5); Platelet Count 326 K/mm3 (150-450); RBC Distribution Width CV 15.4 % (11.6-14.6); RBC Distribution Width SD 51.4 fl (35.1-43.9); Red Blood Count 4.74 M/mm3 (4.2-5.4); White Blood Count 8.7 K/mm3 (4.4-11.0)
[2025-09-24 17:26] LABS: Prothrombin Time (Protime)PT. 13.2 SECONDS (11.7-14.9)
[2025-09-24 17:27] LABS: Partial Thromboplast Time 33.0 Seconds (24.1-36.2)
[2025-09-24 17:29] VITALS: BMI 29.5
[2025-09-24 17:30] VITALS: BP 124/58; PULSE 78; RESP 16; O2SAT 95
--- NOTE | 2025-09-24 17:45 | CM.ED ---
Social Work Reason for visit: Stroke Alert Warm handoff was given by TCU TIMUR Newton as patient has been residing on TCU. Introduction made to patients , escorted to ED room by TIMUR. SW stayed with while patient in imaging. Emotional support provided. No further needs identified at this time. Dee Bach, LIBRARY PAGE, SENIOR PRODUCTION MANAGER
[2025-09-24 17:59] LABS: Anion Gap 11 (5-15); BUN 20 mg/dL (4-19); BUN/Creat Ratio 23.3 RATIO (10-20); Calcium,Total 9.4 mg/dL (7.6-11.0); Carbon Dioxide 25.3 mmol/L (21.0-32.0); Chloride 104 mmol/L (98-108); Estimated Creatinine Clearance 50.67 ml/min (50-250); Glucose 112 mg/dL (70-99); Potassium 4.2 mmol/L (3.3-5.1); Troponin T High Sensitivity 28 ng/L (<=14)
[2025-09-24 18:00] VITALS: BP 111/63; PULSE 84; RESP 16; O2SAT 95
[2025-09-24 18:10] VITALS: BP 111/63; PULSE 84; RESP 16; TEMP 36.6; O2SAT 95
--- NOTE | 2025-09-24 18:15 | ED.RN ---
Spoke with DANDRE Ley on TCU. Informed that patient did not have any new results on her testing and her symptoms are resolving. Pt will be discharged back to TCU in stable condition.
== END 2025-09-24 18:16 ==
PROVIDERS: Emergency Provider Emergency Medicine; Visit Provider Emergency Medicine
DX: I69.322 Dysarthria following cerebral infarction (principal); I69.354 Hemiplegia and hemiparesis following cerebral infarction affecting left non-dominant side; F01.50 Vascular dementia, unspecified severity, without behavioral disturbance, psychotic disturbance, mood disturbance, and anxiety; E89.0 Postprocedural hypothyroidism; E78.5 Hyperlipidemia, unspecified; Z79.82 Long term (current) use of aspirin; Z79.01 Long term (current) use of anticoagulants; Z79.899 Other long term (current) drug therapy
CPT/HCPCS: 70450; 70496; 70498; 80048; 84484; 85025; 85610; 85730; 93005; 99285; Q9967